=== PATIENT | female | born 1965 | race African-American/Black ===

== ENCOUNTER 2022-09-13 00:03 | Emergency (ER) | payer SELFPAY ==
[~2022-09-13] VITALS: Ht 175.3 cm; Wt 95.0 kg
[2022-09-13 00:05] VITALS: BP 172/89; PULSE 99; RESP 20; TEMP 97.6; O2SAT 98
== END 2022-09-13 01:00 | disposition left against medical advice (07) ==
LOC: ER 00:10
DX: S00.81XA Abrasion of other part of head, initial encounter (principal); I10 Essential (primary) hypertension; Y08.89XA Assault by other specified means, initial encounter; Y93.89 Activity, other specified; Y92.89 Other specified places as the place of occurrence of the external cause; Y99.8 Other external cause status
CPT/HCPCS: 99283